=== PATIENT | male | born 1975 | race African-American/Black ===

== ENCOUNTER 2016-12-24 15:17 | Emergency (ER) | payer OTHER ==
[~2016-12-24 15:17] MED LIST: ZANTAC PO
== END 2016-12-24 17:24 | disposition home or self-care (01) ==
LOC: CED 15:17 → CFTX 15:17
DX: H10.33 Unspecified acute conjunctivitis, bilateral (principal); I10 Essential (primary) hypertension; F17.200 Nicotine dependence, unspecified, uncomplicated
CPT/HCPCS: 99283

== ENCOUNTER 2016-12-26 03:49 | Emergency (ER) | payer OTHER ==
--- NOTE | ~2016-12-26 | CT71 ---
[facility] A Service of [facility] RADIOLOGY TEXT RESULTS PATIENT: MAYTE IGLESIAS LOCATION: [facility] : 75 UNIT #: [id number] AGE: [address]: Tavon Jalloh MD SEX: M ORDER DR: [id number] [address] [address] [id number] MR#: [id number] Acc #: [id number] NAME: MAYTE IGLESIAS : 1975 SEX: M STUDY DATE/TIME: 12/26/2016 5:03 UNIT: CATY ROOM: STUDY DESCRIPTION: CT Head Wo Contrast Attending Physician: Tavon Jalloh M.D. Ordering Physician: Tavon Jalloh M.D. Primary Care Physician: No Primary Care Physician MEDICAL IMAGING REPORT This report is preliminary unless electronic signature is present EXAM CT head without contrast INDICATIONS Left-sided headaches since yesterday. PROCEDURE Unenhanced CT of the head. This CT exam was performed with one or more of the following radiation dose reduction techniques: Automatic exposure control, adjustment of mA and/or kV according to patient size, and iterative reconstruction. COMPARISON None. FINDINGS No acute hemorrhage, abnormal mass effect, extraaxial fluid collection or hydrocephalus. No evidence for acute early subacute large territory infarct. No depressed calvarial fracture. The paranasal sinuses and mastoid air cells are clear. IMPRESSION No acute intracranial findings. Dictated by... Renzo Osullivan M.D. THIS IS AN ELECTRONICALLY VERIFIED REPORT Renzo Osullivan M.D. at 12/26/2016 10:27 PM EED/bd TD: 12/26/2016 08:58 JOB #: [id number] [facility] A Service of [facility] RADIOLOGY TEXT RESULTS PATIENT: MAYTE IGLESIAS LOCATION: [facility] : 75 UNIT #: [id number] AGE: [address]: Tavon Jalloh MD SEX: M ORDER DR: MEDICAL IMAGING REPORT Page 1 of 1 COPY
[2016-12-26 04:54] LABS: BASOPHIL% 0.5 % (0-2.5); EOSINOPHIL# 0.1 X10e3 (0-0.7); EOSINOPHIL% 0.7 % (0.0-7.0); HEMATOCRIT 44.9 % (38.0-50.0); HEMOGLOBIN 14.5 gm/dL (13.0-16.0); LYMPHOCYTE# 1.6 X10e3 (1.0-3.5); LYMPHOCYTE% 19.5 % (17.0-45.0); MEAN CELL VOLUME 87.3 FL (83-96); MEAN CORPUSCULAR HEMOGLOBIN 28.2 PG (28-34); MEAN CORPUSCULAR HGB CONC 32.3 g/dL (30-36); MEAN PLATELET VOLUME 8.2 FL (6.5-11.5); MONOCYTE# 0.6 X10e3 (0-1.0); MONOCYTE% 6.8 % (3.0-12.0); NEUTROPHIL# 6.1 X10e3 (1.5-7.1); NEUTROPHIL% 72.5 % (40-75); PLATELET COUNT 219 X10e3 (140-420); RED BLOOD COUNT 5.14 X10e (3.90-5.60); RED CELL DISTRIBUTION WIDTH 14.4 % (11.0-15.5); WHITE BLOOD COUNT 8.4 X10e3 (4.0-10.5)
[2016-12-26 04:55] LABS: DIFF IND NO
[2016-12-26 05:28] LABS: CALCIUM SERUM 8.8 mg/dL (8.4-10.2); GLOM FILT RATE Estimated 107.9 mL/min (>60); POTASSIUM 3.8 mmol/L (3.5-5.1)
== END 2016-12-26 06:40 | disposition home or self-care (01) ==
LOC: CED 03:49
PROVIDERS: Emergency Medicine
DX: R51 Headache (principal); R11.2 Nausea with vomiting, unspecified; I10 Essential (primary) hypertension
CPT/HCPCS: 36415; 70450; 80048; 85025; 96361; 96374; 96375; 99284; J1100; J1200; J1885; J2765